=== PATIENT | female | born 1950 | race Caucasian/White ===

== ENCOUNTER → 2023-12-03 10:36 | Outpatient (REF) | payer MEDICARE, SELFPAY | LOC: WDC 10:36 | PROVIDERS: ATTENDING PHYSICIAN Family Medicine; REFERRING PHYSICIAN Obstetrics & Gynecology Gynecology | DX: Z12.31 Encounter for screening mammogram for malignant neoplasm of breast (principal); M81.0 Age-related osteoporosis without current pathological fracture | CPT/HCPCS: 77063; 77067; 77080 ==

== ENCOUNTER → 2024-10-03 13:40 | Outpatient (REF) | payer MEDICARE, SELFPAY | LOC: MRI 3T 13:40 | PROVIDERS: ATTENDING PHYSICIAN Orthopaedic Surgery; FAMILY PHYSICIAN Family Medicine | DX: M25.512 Pain in left shoulder (principal) | CPT/HCPCS: 73221 ==

== ENCOUNTER → 2024-12-11 14:21 | Outpatient (REF) | payer MEDICARE, SELFPAY | LOC: WDC 14:21 | PROVIDERS: ATTENDING PHYSICIAN Family Medicine | DX: Z12.31 Encounter for screening mammogram for malignant neoplasm of breast (principal) | CPT/HCPCS: 77063; 77067 ==